=== PATIENT | female | born 1995 | race Caucasian/White ===

== ENCOUNTER 2016-12-21 16:19 | Emergency (ER) | payer OTHER ==
[2016-12-21 16:32] VITALS: O2SAT 98
--- NOTE | 2016-12-21 17:25 | EDPHY ---
H & P Stated Complaint: Silvestre trany HPI/ROS: Chief complaint: Left 5th finger injury History of present illness: This is an otherwise healthy 21-year-old female who presents to the emergency department for a left 5th finger injury. Patient was catching a football when he jammed her finger. Since then she has noted a deformity to the finger. She is having difficulty moving it. She denies open wounds. She denies abnormal coolness or paresthesias. No other injuries reported. - Personal History LMP (Females 10-55): 1-7 Days Ago Current Tetanus Diphtheria and Acellular Pertussis (TDAP): Yes - Medical/Surgical History Other PMH: healthy - Social History Smoking Status: Never smoked - Physical Exam Exam: General: Alert, nontoxic Skin: No open wounds to the left 5th finger Musculoskeletal: Deformity at the PIP joint of the left 5th finger. She cannot move it. She can move the DIP and MCP joint. Vascular: Capillary refill brisk in the left 5th finger Neurologic: Sensation intact in the left 5th finger using light touch Constitutional: Initial Vital Signs Temperature (C) 36.9 C 12/21/16 16:20 Heart Rate 118 H 12/21/16 16:20 Respiratory Rate 18 12/21/16 16:20 Blood Pressure 115/93 H 12/21/16 16:20 O2 Sat (%) 98 12/21/16 16:20 O2 Delivery Mode Room Air Allergies/Adverse Reactions: Sulfa (Sulfonamide Antibiotics) Allergy (Intermediate, Verified 12/21/16 16:29) rash and trouble breathing Home Medications: Medication Instructions Recorded Control Pill 12/21/16 Cetirizine [ZyrTEC 10 mg (*)] 10 mg PO DAILY 12/21/16 Medical Decision Making - Diagnostics Imaging: I viewed and interpreted images myself Procedures: Procedure: Dislocation reduction. The finger was reduced in the usual fashion without complications. Post reduction the patient's neurovascular exam is normal. Post reduction x-ray demonstrates reduction of the joint to the anatomic position. The procedure was performed by myself. Procedure: Splint placement. A finger splint was applied. After application of the splint I returned and re- examined the patient. The splint was adequately immobilizing the joint and distal to the splint the patient's circulation and sensation was intact. ED Course/Re-evaluation: Patient seen under the supervision of my primary supervising physician Dr. Karishma Reynolds. Patient presents to the emergency department for a left 5th finger injury. The finger is neurovascularly intact. X-ray confirms a dislocation that has been reduced. Finger has been splinted. The finger remains neurovascularly intact. Patient is discharged home. Referred to hand surgery for recheck. Return precautions are given. Patient voiced understanding and agreement with plan. Differential Diagnosis: Included but not limited to contusion, sprain or strain, fracture, joint dislocation Departure - Departure Disposition: Home, Routine, Self-Care Clinical Impression: Dislocated finger Qualifiers: Encounter type: initial encounter Qualified Code(s): S63.259A - Unspecified dislocation of unspecified finger, initial encounter Condition: Good Instructions: Finger Dislocation (ED) Additional Instructions: Follow-up with hand surgery for continued evaluation and care Use ibuprofen 600 mg 3 times a day for the next 2-3 days for symptom control Ice the injury, 20 minutes on, 3 times daily for the next 3 days If symptoms worsen or new symptoms develop return to the emergency room for recheck Referrals: UNKNOWN,DOCTOR [Other] - As per Instructions Radha Toledo MD [Medical Doctor] - As per Instructions
[2016-12-21 17:59] VITALS: BP 112/60; PULSE 72; RESP 16; TEMP 97.7
== END 2016-12-21 17:58 | disposition home or self-care (01) ==
PROC: 0RSXXZZ Reposition Left Finger Phalangeal Joint, External Approach (ICD-10-PCS; principal; 2016-12-21)
DX: S63.287A Dislocation of proximal interphalangeal joint of left little finger, initial encounter (principal); W23.0XXA Caught, crushed, jammed, or pinched between moving objects, initial encounter; Y92.321 Football field as the place of occurrence of the external cause; Y99.8 Other external cause status; Y93.61 Activity, american tackle football
CPT/HCPCS: L3925